=== PATIENT | male | born 1960 | race Caucasian/White ===

== ENCOUNTER 2023-10-06 08:46 | Day surgery (SDC) | payer OTHER ==
[2023-10-06] MEDS: Sodium Chloride 0.9% 1,000 ML IV SCH (09:56)
[2023-10-06] MEDS ORDERED: Midazolam 1 MG/ML 2 ML SDV ONE (09:57)
[2023-10-06] MEDS ORDERED: Propofol 200 MG/20 ML SDV ONE (09:57)
[2023-10-06] MEDS ORDERED: fentaNYL 50 MCG/ML SDV ONE (09:57)
== END 2023-10-06 12:10 | disposition home or self-care (01) ==
LOC: JP.SDS 08:46
PROVIDERS: ATTEND Surgery
DX: Z12.11 Encounter for screening for malignant neoplasm of colon (principal); E78.5 Hyperlipidemia, unspecified
CPT/HCPCS: 00812-QZ; J2250; J2704; J3010; J7030